=== PATIENT | male | born 1965 | race Caucasian/White ===

== ENCOUNTER 2019-05-09 06:35 | Day surgery (SDC) | payer OTHER ==
[2019-05-08 14:46] LABS: BASOPHILS % (AUTO) 0.7 % (0-1); EOSINOPHILS # (AUTO) 0.1 X10'3 (0-0.9); EOSINOPHILS % (AUTO) 1.8 % (0-6); LYMPHOCYTES # (AUTO) 1.4 X10'3 (1.1-4.8); LYMPHOCYTES % (AUTO) 20.1 % (21-51); MEAN CORPUSCULAR HEMOGLOBIN 30.6 PG (27.0-31.0); MEAN CORPUSCULAR HGB CONC 34.8 g/dL (33.0-36.5); MEAN CORPUSCULAR VOLUME 87.9 FL (78-98); MEAN PLATELET VOLUME 7.3 FL (7.4-10.4); MONOCYTES # (AUTO) 0.6 X10'3 (0-0.9); MONOCYTES % (AUTO) 7.9 % (2-12); NEUTROPHILS # (AUTO) 4.9 X10'3 (1.8-7.7); NEUTROPHILS % (AUTO) 69.5 % (42-75); PRE OP HEMATOCRIT 43.8 % (42.0-52.0); PRE OP HEMOGLOBIN 15.3 g/dL (14.0-17.9); PRE OP PLATELET COUNT 235 X10'3 (140-440); RED BLOOD COUNT 4.99 X10'6 (4.70-6.10); RED CELL DISTRIBUTION WIDTH 12.9 % (11.5-14.5)
[2019-05-08 14:58] LABS: ALBUMIN 4.1 G/DL (3.4-5.0); ALBUMIN/GLOBULIN RATIO 1.4 (1.1-1.5); ALKALINE PHOSPHATASE 66 IU/L (46-116); BLOOD UREA NITROGEN 18 MG/DL (7-18); BUN/CREATININE RATIO 18.4 (5.4-32.0); CHLORIDE 107 MMOL/L (99-107); CREATININE 0.98 MG/DL (0.60-1.10); PRE OP ALT 48 U/L (30-65); PRE OP ANION GAP 8 (8-16); PRE OP AST 20 U/L (10-37); PRE OP BILIRUB, TOTAL 0.3 MG/DL (0.0-1.0); PRE OP GLUCOSE 129 MG/DL (70-104); PRE OP POTASSIUM 4.3 MMOL/L (3.4-5.1); PRE OP SODIUM 144 MMOL/L (135-145); TOTAL CARBON DIOXIDE 28.6 MMOL/L (24-32); TOTAL PROTEIN 7.1 G/DL (6.4-8.2); eGFR 80 ML/MIN
[2019-05-09] VITALS (11 sets, daily range): BP systolic 104–137; BP diastolic 61–79
[~2019-05-09] VITALS: Ht 177.8 cm; Wt 93.0 kg
[~2019-05-09 06:35] MED LIST: NO HOME MEDS; cefazolin/dext.iso 2gm/100 ML IV ONE
[2019-05-09] MEDS ORDERED: LIDOcaine 1% (10mg/ml) 2ml vial ONE (06:46)
[2019-05-09] MEDS ORDERED: famotidine 20mg tablet PO ONE (06:54)
[2019-05-09] MEDS ORDERED: ringers solution, lacted 1,000 ML IV SCH ×2 (06:55→09:49)
[2019-05-09] MEDS ORDERED: ceFAZolin 1000mg inj ONE (07:57)
[2019-05-09] MEDS ORDERED: BUPIVAcaine/PF 2.5 mg/ml (0.25%) 30ml vial ONE ×2 (07:57→08:14)
[2019-05-09] MEDS ORDERED: albuterol 60 PUFF/8GM Inhaler IH ONE (08:09)
[2019-05-09] MEDS ORDERED: sevoflurane 250ml liquid IH ONE (08:09)
[2019-05-09] MEDS ORDERED: dexamethasone sod phosphate 10mg/ml inj ONE (08:09)
[2019-05-09] MEDS ORDERED: BUPIVACAINE liposomal/PF 13.3 MG/ML vial IM ONE (08:14)
[2019-05-09] MEDS ORDERED: fentaNYL /PF 50mcg/ml 5ml ampule ONE (08:16)
[2019-05-09] MEDS ORDERED: midazolam 2 mg/2 ml injection ONE (08:16)
[2019-05-09] MEDS ORDERED: rocuronium 10mg/ml inj IV ONE (09:09)
[2019-05-09] MEDS ORDERED: LIDOcaine 2% (20mg/ml) 5ml vial ONE (09:09)
[2019-05-09] MEDS ORDERED: glycopyrrolate 0.2mg/ml inj ONE (09:09)
[2019-05-09] MEDS ORDERED: neostigmine methylsulfate 1 MG/ML 10ml vial ONE (09:09)
[2019-05-09] MEDS ORDERED: ondansetron/PF 4mg/2ml inj ONE (09:09)
[2019-05-09] MEDS ORDERED: propofol inj 20 ML IV ONE (09:09)
[2019-05-09] MEDS ORDERED: sugammadex 200mg/2ml injection IV ONE (09:36)
--- NOTE | 2019-05-09 09:41 | NUR ---
Received from OR via , accompanied by Anesthesiologist DR PIERCE and report given by Anesthesiolgist. PT IS SLEEPING AND NOT RESPONDING TO VOICE, MOVES EXT X 4, SKIN WARM AND PINK, VSS, POST OP SHIVERS RESOLVED WITH WARM BLANKET AND MEDICATION GIVEN BY DR PIERCE. PIV RIGHT FA 20G PATENT WITH LR 100MLS/HR.
[2019-05-09] MEDS ORDERED: meperidine/PF 25mg/ml syringe ONE (09:45)
[2019-05-09] MEDS ORDERED: ondansetron/PF 4mg/2ml inj IV PRN (09:50)
[2019-05-09] MEDS ORDERED: proCHLORperazine 10 MG/2 ml inj IV PRN (09:50)
[2019-05-09] MEDS ORDERED: morphine 4 MG/ML inj SYRINge IV PRN ×2 (09:50)
[2019-05-09] MEDS ORDERED: meperidine/PF 25mg/ml syringe IV PRN ×2 (09:50)
[2019-05-09] MEDS ORDERED: acetaminophen 1,000mg/100ml IV 100 ML IV ONE (10:04)
[2019-05-09] MEDS: meperidine/PF 25mg/ml syringe IV PRN ×2 (10:08→10:26)
--- NOTE | 2019-05-09 11:21 | NUR ---
PATIENT MEETS DISCHARGE CRITERIA. UP TO DRESS INDEP, VOIDED PRIOR TO DISCHARGE, IV REMOVED, IVANA ICE WATER AND 7UP, MILD C/O PAIN, PT TOOK ONE HOME PAIN MED PRIOR TO LEAVING, REVIEWED DISCHARGE INSTRUCTIONS WITH PT AND , BOTH VERBALIZE UNDERSTANDING, VSS, BA'S ON ABD CD, PT DISCHARGED TO VEHICLE VIA W/C WITH VOLUNTEER SERVICES.
== END 2019-05-09 11:21 | disposition home or self-care (01) ==
LOC: PAS 06:35
PROVIDERS: ATTEND Surgery
DX: K42.9 Umbilical hernia without obstruction or gangrene (principal); K43.9 Ventral hernia without obstruction or gangrene; Z98.890 Other specified postprocedural states; Z79.899 Other long term (current) drug therapy
CPT/HCPCS: 36415; 49652; 80053; 85025; 93005; C1758; C1781; C9290; C9399; J0131; J0690; J2001; J2175; J2250; J2405; J2704; J2710; J3010; J3490; J7120; A4215; A4618; A7000; J1100